=== PATIENT | male | born 1955 | race Caucasian/White ===

== ENCOUNTER 2018-02-10 11:34 | Emergency (ER) | payer MEDICAID ==
[~2018-02-10] VITALS: Ht 152.4 cm; Wt 49.0 kg
[2018-02-10 11:48] VITALS: BP 153/75
[2018-02-10] MEDS ORDERED: TETRACAINE 0.5% OPHTH DROPS 4ML BOTHEYE ONE (15:15)
[2018-02-10] MEDS ORDERED: FLUORESCEIN SODIUM 1MG/STRIP BOTHEYE ONE (15:15)
== END 2018-02-10 17:11 | disposition home or self-care (01) ==
LOC: ER 11:34
DX: B35.6 Tinea cruris (principal); H53.8 Other visual disturbances; I10 Essential (primary) hypertension; F41.9 Anxiety disorder, unspecified; Z90.49 Acquired absence of other specified parts of digestive tract; Z87.19 Personal history of other diseases of the digestive system
CPT/HCPCS: 99283

== ENCOUNTER 2018-05-30 11:27 | Emergency (ER) | payer MEDICAID ==
[~2018-05-30] VITALS: Ht 152.4 cm; Wt 48.0 kg
[2018-05-30 13:48] VITALS: BP 128/68
== END 2018-05-30 19:57 | disposition left against medical advice (07) ==
LOC: ER 11:27
DX: Z53.21 Procedure and treatment not carried out due to patient leaving prior to being seen by health care provider (principal)

== ENCOUNTER 2019-01-02 14:11 | Emergency (ER) | payer MEDICAID ==
[~2019-01-02] VITALS: Ht 157.5 cm; Wt 55.0 kg
[2019-01-02] MEDS ORDERED: IBUPROFEN 600MG TABLET PO ONE (16:45)
[2019-01-02 16:53] VITALS: BP 150/70
== END 2019-01-02 18:50 | disposition home or self-care (01) ==
LOC: ER 14:11
DX: R68.84 Jaw pain (principal); M54.2 Cervicalgia; Y04.2XXA Assault by strike against or bumped into by another person, initial encounter; Y07.59 Other non-family member, perpetrator of maltreatment and neglect; Y93.89 Activity, other specified; M47.892 Other spondylosis, cervical region; Y92.038 Other place in apartment as the place of occurrence of the external cause
CPT/HCPCS: 70486; 99284

== ENCOUNTER 2022-08-01 23:03 | Emergency (ER) | payer MEDICAID ==
[~2022-08-01] VITALS: Ht 157.5 cm; Wt 64.0 kg
[2022-08-01 23:41] VITALS: BP 140/90
[2022-08-02] MEDS ORDERED: IBUP-2029 MT (03:48)
== END 2022-08-02 04:19 | disposition home or self-care (01) ==
LOC: ER 23:03
DX: M54.9 Dorsalgia, unspecified (principal); I10 Essential (primary) hypertension
CPT/HCPCS: 99283

== ENCOUNTER 2022-08-25 15:19 | Emergency (ER) | payer MEDICAID, OTHER ==
[~2022-08-25] VITALS: Ht 157.5 cm; Wt 59.0 kg
[~2022-08-25 15:19] MED LIST: IBUP-2029 MT
[2022-08-25 15:23] VITALS: BP 166/84
[2022-08-25] MEDS ORDERED: KETOROLAC 30MG/ML VIAL IM ONE (16:15)
[2022-08-25 16:41] LABS: HEMATOCRIT. 42.6 % (42.0-52.0); HEMOGLOBIN. 14.7 g/dL (14.0-18.0); MEAN CORPUSCULAR HEMOGLOBIN 32.3 pg (28.0-32.0); MEAN CORPUSCULAR VOLUME 93.5 fL (80.0-94.0); MEAN PLATELET VOLUME 8.7 fl (7.4-10.4); PLATELET 180 x1000/uL (130-400); RED BLOOD CELL COUNT 4.56 mill/uL (4.7-6.1); RED CELL DISTRIBUTION WIDTH 13.6 % (11.6-14.6)
[2022-08-25 16:57] LABS: CHLORIDE 102 mEq/L (98-107)
[2022-08-25 17:09] LABS: CLARITY URINE CLEAR (CLEAR); COLOR URINE YELLOW (YELLOW); KETONES URINE NEGATIVE (NEGATIVE); LEUKOCYTE ESTERASE URINE NEGATIVE (NEGATIVE); NITRITE URINE NEGATIVE (NEGATIVE); OCCULT BLOOD URINE NEGATIVE (NEGATIVE); PH URINE 7.5 (4.5-8.0); PROTEIN URINE NEGATIVE (NEGATIVE); SPECIFIC GRAVITY URINE 1.005 (1.005-1.030); UROBILINOGEN URINE 0.2 E.U./dL (0.2-1.0)
[2022-08-25] MEDS ORDERED: IBUP-2028 MT (18:09)
[2022-08-25 20:20] LABS: PLATELET ESTIMATE NORMAL
[2022-08-26] MEDS ORDERED: CYCL10TA21 MT (13:58)
== END 2022-08-25 18:38 | disposition home or self-care (01) ==
LOC: ER 15:19
DX: M54.50 Low back pain, unspecified (principal); I10 Essential (primary) hypertension
CPT/HCPCS: 36415; 72100; 80053; 81003; 85025; 96372; 99284; J1885; Z7610

== ENCOUNTER 2022-08-26 13:05 | Emergency (ER) | payer OTHER ==
[~2022-08-26] VITALS: Ht 152.4 cm; Wt 55.0 kg
[~2022-08-26 13:05] MED LIST changes: +IBUP-2028 MT
[2022-08-26 13:18] VITALS: BP 154/72
[2022-08-26] MEDS ORDERED: CYCL10TA21 MT (13:58)
== END 2022-08-26 14:03 | disposition home or self-care (01) ==
LOC: ER 13:05
DX: M54.50 Low back pain, unspecified (principal); I10 Essential (primary) hypertension
CPT/HCPCS: 99281; 99283

== ENCOUNTER 2022-08-28 14:02 | Emergency (ER) | payer OTHER ==
[~2022-08-28] VITALS: Ht 157.5 cm; Wt 54.0 kg
[~2022-08-28 14:02] MED LIST changes: +ACET-2708 MT; +AMLO5TAB88 MT; +CHLO25TA68 MT; +CYCL10TA21 MT; +[UNRECOGNIZED DRUG - REMARK]
[2022-08-28] MEDS ORDERED: LIDOCAINE 5% PATCH TOP SCH (15:00)
[2022-08-28] MEDS ORDERED: LIDO1ADH71 TOP (15:10)
[2022-08-28 16:09] VITALS: BP 172/84
== END 2022-08-28 17:52 | disposition home or self-care (01) ==
LOC: ER 14:02 → MERGE 14:02 → ER 17:52
DX: M54.50 Low back pain, unspecified (principal); I10 Essential (primary) hypertension
CPT/HCPCS: 99283

== ENCOUNTER 2022-12-03 07:56 | Emergency (ER) | payer OTHER ==
[~2022-12-03] VITALS: Ht 167.6 cm; Wt 64.0 kg
[~2022-12-03 07:56] MED LIST changes: +LIDO1ADH71 TOP
[2022-12-03 07:59] VITALS: TEMP 98.5; O2SAT 98
[2022-12-03 08:38] LABS: HEMATOCRIT. 43.2 % (42.0-52.0); HEMOGLOBIN. 14.8 g/dL (14.0-18.0); MEAN CORPUSCULAR HEMOGLOBIN 32.7 pg (28.0-32.0); MEAN CORPUSCULAR HGB CONC 34.2 g/dL (31.0-37.0); MEAN CORPUSCULAR VOLUME 95.6 fL (80.0-94.0); MEAN PLATELET VOLUME 10.3 fl (7.4-10.4); PLATELET 145 x1000/uL (130-400); RED BLOOD CELL COUNT 4.52 mill/uL (4.7-6.1); RED CELL DISTRIBUTION WIDTH 14.1 % (11.6-14.6); WHITE BLOOD COUNT 5.1 x1000/uL (4.5-11.0)
[2022-12-03 08:41] LABS: DIFFERENTIAL COMMENT 1
[2022-12-03 08:48] LABS: CHLORIDE 109 mEq/L (98-107); INDEX HEMOLYSI 1 (1-3); INDEX ICTERIC 1 (1-4); INDEX LIPEMIC 1 (1-3); POTASSIUM 4.2 mEq/L (3.5-5.1); SODIUM 137 mEq/L (136-145)
[2022-12-03 08:58] LABS: ALANINE AMINOTRANSFERASE 40 IU/L (13-61); ALBUMIN 3.5 g/dL (3.4-5.0); ASPARTATE AMINOTRANSFERASE 22 IU/L (15-37); BILIRUBIN TOTAL 0.6 mg/dL (0.1-1.0); CALCIUM 8.5 mg/dL (8.5-10.1); CARBON DIOXIDE 24 mEq/L (21-32); CREATININE 0.7 mg/dL (0.6-1.3); GLUCOSE 109 mg/dL (70-105); NT PRO B-TYPE NATRIURETIC PEP 22 pg/mL (5-125); PROTEIN TOTAL 6.6 g/dL (6.0-8.3); UREA NITROGEN BLOOD 22 mg/dL (7-21)
[2022-12-03] MEDS ORDERED: MECL-159 MT (09:00)
[2022-12-03] MEDS ORDERED: MECLIZINE 25MG TABLET PO ONE (09:15)
[2022-12-03] MEDS ORDERED: MECLIZINE 12.5MG TABLET PO NR (10:00)
[2022-12-03 10:06] LABS: PLATELET ESTIMATE NORMAL
[2022-12-03 10:13] VITALS: BP 129/62; PULSE 59; RESP 16
== END 2022-12-03 10:15 | disposition home or self-care (01) ==
LOC: ER 07:56
DX: R42 Dizziness and giddiness (principal); E78.00 Pure hypercholesterolemia, unspecified; I10 Essential (primary) hypertension
CPT/HCPCS: 99285; 71045; 80053; 83880; 85025; 86850; 86900; 86901; 36415; 93005; J8597

== ENCOUNTER 2022-12-06 20:31 | Emergency (ER) | payer OTHER ==
[~2022-12-06] VITALS: Ht 165.1 cm; Wt 59.0 kg
[~2022-12-06 20:31] MED LIST changes: +MECL-159 MT
[2022-12-06 20:33] VITALS: BP 155/86; PULSE 80; RESP 18; TEMP 98.6; O2SAT 100
[2022-12-06] MEDS ORDERED: MECLIZINE 25MG TABLET PO ONE (21:00)
[2022-12-06] MEDS ORDERED: MECLIZINE 12.5MG TABLET PO NR (21:00)
[2022-12-06 21:12] LABS: HEMATOCRIT. 41.8 % (42.0-52.0); HEMOGLOBIN. 14.4 g/dL (14.0-18.0); MEAN CORPUSCULAR HEMOGLOBIN 32.8 pg (28.0-32.0); MEAN CORPUSCULAR HGB CONC 34.3 g/dL (31.0-37.0); MEAN CORPUSCULAR VOLUME 95.5 fL (80.0-94.0); MEAN PLATELET VOLUME 9.3 fl (7.4-10.4); PLATELET 154 x1000/uL (130-400); RED BLOOD CELL COUNT 4.38 mill/uL (4.7-6.1); RED CELL DISTRIBUTION WIDTH 13.9 % (11.6-14.6); WHITE BLOOD COUNT 7.1 x1000/uL (4.5-11.0)
[2022-12-06 21:18] LABS: DIFFERENTIAL COMMENT 1
[2022-12-06 21:32] LABS: CHLORIDE 105 mEq/L (98-107); INDEX HEMOLYSI 1 (1-3); INDEX ICTERIC 1 (1-4); INDEX LIPEMIC 1 (1-3); POTASSIUM 4.3 mEq/L (3.5-5.1); SODIUM 137 mEq/L (136-145)
[2022-12-06 21:39] LABS: ALANINE AMINOTRANSFERASE 41 IU/L (13-61); ALBUMIN 3.8 g/dL (3.4-5.0); ASPARTATE AMINOTRANSFERASE 27 IU/L (15-37); BILIRUBIN TOTAL 0.4 mg/dL (0.1-1.0); CALCIUM 8.6 mg/dL (8.5-10.1); CARBON DIOXIDE 25 mEq/L (21-32); CREATININE 1.2 mg/dL (0.6-1.3); GLUCOSE 140 mg/dL (70-105); PROTEIN TOTAL 7.1 g/dL (6.0-8.3); TROPONIN I HIGH SENSITIVITY 6 ng/L (<78); UREA NITROGEN BLOOD 34 mg/dL (7-21)
[2022-12-07 00:01] LABS: PLATELET ESTIMATE NORMAL
[2022-12-07 00:02] LABS: ANISOCYTOSIS 1+; GIANT PLATELETS FEW
[2022-12-07] MEDS ORDERED: ACETAMINOPHEN 325MG TABLET PO ONE (00:15)
== END 2022-12-07 06:31 | disposition home or self-care (01) ==
LOC: ER 20:31
DX: R42 Dizziness and giddiness (principal); I10 Essential (primary) hypertension; E78.00 Pure hypercholesterolemia, unspecified; Z79.899 Other long term (current) drug therapy
CPT/HCPCS: 99285; 70450; 71045; 80053; 85025; 84484; 36415; 93005; J8597

== ENCOUNTER 2023-11-04 08:02 | Emergency (ER) | payer OTHER ==
[~2023-11-04] VITALS: Ht 157.5 cm; Wt 55.0 kg
[~2023-11-04 08:02] MED LIST changes: -MECL-159 MT; +MECL-299 MT
[2023-11-04 08:05] VITALS: O2SAT 98
[2023-11-04] MEDS ORDERED: IBUP-2029 MT (10:23)
[2023-11-04 10:31] VITALS: BP 145/71; PULSE 75; RESP 16; TEMP 98.1
== END 2023-11-04 10:37 | disposition home or self-care (01) ==
LOC: ER 08:22
DX: S00.83XA Contusion of other part of head, initial encounter (principal); E78.00 Pure hypercholesterolemia, unspecified; I10 Essential (primary) hypertension; Z79.899 Other long term (current) drug therapy; X58.XXXA Exposure to other specified factors, initial encounter; Y93.89 Activity, other specified; Y92.89 Other specified places as the place of occurrence of the external cause; Y99.8 Other external cause status
CPT/HCPCS: 70486; 99284